=== PATIENT | male | born 1985 | race Caucasian/White ===

== ENCOUNTER 2021-09-12 12:56 | Emergency (ER) | payer OTHER ==
[~2021-09-12] VITALS: Ht 165.1 cm; Wt 59.0 kg
== END 2021-09-12 18:40 | disposition home or self-care (01) ==
LOC: ER 12:56
DX: R33.8 Other retention of urine (principal); N39.0 Urinary tract infection, site not specified

== ENCOUNTER 2021-09-14 13:30 | Emergency (ER) | payer OTHER ==
[~2021-09-14] VITALS: Ht 165.1 cm; Wt 61.2 kg
[2021-09-14] MEDS ORDERED: TAMS0.4C PO (18:16)
== END 2021-09-14 18:53 | disposition home or self-care (01) ==
LOC: ER 13:30
DX: N39.0 Urinary tract infection, site not specified (principal); N20.0 Calculus of kidney